=== PATIENT | female | born 1965 ===

== ENCOUNTER 2017-01-13 07:24 | Day surgery (SDC) | payer MEDICAID ==
[2017-01-13 07:50] VITALS: BMI 28.3
[2017-01-13] MEDS ORDERED: Propofol 10 mg/ml Inj (20 ML) ONE (10:51)
[2017-01-13] MEDS ORDERED: Lactated Ringer's 500 ML IV ONE (10:53)
[2017-01-13] MEDS ORDERED: Lactated Ringer's 1,000 ML IV SCH (11:00)
[2017-01-13] MEDS ORDERED: Simethicone 40 mg/0.6 ml Liquid (30 ml) ONE ×2 (11:08)
[2017-01-13 11:36] VITALS: TEMP 97.5
[2017-01-13 12:23] VITALS: BP 127/64; PULSE 77; RESP 15; O2SAT 97
== END 2017-01-13 12:23 | disposition home or self-care (01) ==
LOC: C.ENDO 07:24
PROVIDERS: ATTEND Internal Medicine Gastroenterology
DX: R10.13 Epigastric pain (principal); K29.70 Gastritis, unspecified, without bleeding; Z98.84 Bariatric surgery status; Z12.11 Encounter for screening for malignant neoplasm of colon; K57.30 Diverticulosis of large intestine without perforation or abscess without bleeding; D12.2 Benign neoplasm of ascending colon; K64.8 Other hemorrhoids
CPT/HCPCS: 43239; 45385; 88305; 88313 ×2; 88342 ×2; J2704; J7120